=== PATIENT | male | born 1990 | race Two or more races ===

== ENCOUNTER 2016-11-21 09:57 | Emergency (ER) | payer OTHER, BC ==
[~2016-11-21] VITALS: Ht 152.4 cm; Wt 49.9 kg
[2016-11-21 11:23] VITALS: BP 126/77
[2016-11-21] MEDS ORDERED: ERYT1OIN6 EACHEYE (11:27)
--- NOTE | 2016-11-21 11:27 | PHYS DOC ---
Adult General Chief Complaint Chief Complaint: EYE PROBLEMS HPI HPI Patient is a 26 year old male with no significant medical history who presents with contusion to the right eye. Patient states he was at work yesterday when somebody accidentally elbowed him to the right eye. Patient denies any vision loss. Review of Systems Review of Systems Constitutional: Denies fever or chills [] Eyes: right eye contusion HENT: Denies nasal congestion or sore throat [] Musculoskeletal: Denies back pain or joint pain [] Integument: Denies rash or skin lesions [] Neurologic: Denies headache, focal weakness or sensory changes [] Endocrine: Denies polyuria or polydipsia [] Current Medications Current Medications Current Medications Medications (Trade) Dose Ordered Sig/Adriano Start Time Stop Time Status Last Admin Dose Admin Diphtheria/ Tetanus/Acell Pertussis (Boostrix) 0.5 ml ONCE ONCE 11/21/16 11:30 11/21/16 11:31 UNV Physical Exam Physical Exam Constitutional: Well developed, well nourished, no acute distress, non-toxic appearance. [] HENT: Normocephalic, atraumatic, bilateral external ears normal, oropharynx moist, no oral exudates, nose normal. [] Eyes: PERRLA, EOMI, right conjunctiva is mildly injected. There is bruising on the right upper eyelid, no discharge. [] Neck: Normal range of motion, no tenderness, supple, no stridor. [] Skin: Warm, dry, no erythema, no rash. [] Back: No tenderness, no CVA tenderness. [] Extremities: No tenderness, no cyanosis, no clubbing, ROM intact, no edema. [] Neurologic: Alert and oriented X 3, normal motor function, normal sensory function, no focal deficits noted. [] Psychologic: Affect normal, judgement normal, mood normal. [] EKG EKG [] Radiology/Procedures Radiology/Procedures [] Course & Med Decision Making Course & Med Decision Making Pertinent Labs and Imaging studies reviewed. (See chart for details) Patient has contusion to the right eye, no vision loss. Discharged with erythromycin eye ointment. Follow-up with the insurance account representative provided in 1-2 weeks as needed. Provided return precautions. Discharged in stable condition. Dragon Disclaimer Dragon Disclaimer This electronic medical record was generated, in whole or in part, using a voice recognition dictation system. Departure Departure Impression: Primary Impression: Contusion, eye, right Disposition: 01 HOME, SELF-CARE Condition: STABLE Referrals: NO PCP (PCP) Seema CALIX MD Follow-up with the provided eye doctor in 1-2 weeks Patient Instructions: Contusion Additional Instructions: You were seen with contusion to the right eye. Use the prescribed medicine as ordered. Follow-up with the provided insurance account representative in 1-2 weeks if symptoms continue. You can apply ice to the exterior part of the eye. Come back to the ED symptoms worsen. Scripts Erythromycin Base (ERYTHROMYCIN) 3.5 Gm Oint...g. 1 [facility] Q4-6HRS, #3.5 GM use for seven days Prov: KAITLYN ONEILL APRN 11/21/16 Problem Qualifiers Primary Impression: Contusion, eye, right Encounter type: initial encounter Qualified Codes: S05.11XA - Contusion of eyeball and orbital tissues, right eye, initial encounter KAITLYN ONEILL APRN November 21, 2016 11:27
[2016-11-21] MEDS ORDERED: DIPHTH,PERTUSS(ACELL),TET TOX 0.5 ML DISP.SYRIN. VAX IM ONE (11:30)
== END 2016-11-21 11:49 | disposition home or self-care (01) ==
LOC: ER 10:22
DX: S05.11XA Contusion of eyeball and orbital tissues, right eye, initial encounter (principal); W50.0XXA Accidental hit or strike by another person, initial encounter; Y93.89 Activity, other specified; Y92.89 Other specified places as the place of occurrence of the external cause; Y99.8 Other external cause status
CPT/HCPCS: 99283